=== PATIENT | female | born 1945 | race Hispanic/Latino ===

== ENCOUNTER 2017-02-01 08:10 | Inpatient (IN) | payer MEDICARE ==
[2014-10-06 14:02] VITALS: BMI 31.0
[2017-02-01] MEDS ORDERED: Propofol 10 mg/ml Inj (20 ML) ONE (10:19)
[2017-02-01] MEDS ORDERED: HEPARIN-NS 5,000 UNITS/500 ML 10,000 UNIT/1,000 ML BAG IV ONE (10:28)
[2017-02-01] MEDS ORDERED: ceFAZolin IV 2 gm in Dextrose 1 GM/50 ML BAG IVPB ONE (10:28)
[2017-02-01] MEDS ORDERED: Thrombin Topical 20,000 Intl Units Spray Kit TOP ONE ×2 (10:30→14:02)
[2017-02-01] MEDS ORDERED: Lidocaine 1% Inj (20ml) ONE (10:30)
[2017-02-01] MEDS ORDERED: Lactated Ringer's 1,000 ML IV ONE ×3 (10:45→13:34)
[2017-02-01] MEDS ORDERED: Sodium Chloride 0.9% 1,000 ML IV ONE ×2 (10:45→20:00)
[2017-02-01] MEDS ORDERED: Esmolol 100 mg/10ml Inj IV ONE (11:32)
[2017-02-01] MEDS ORDERED: ePHEDrine 50 mg/ml Inj ONE (11:39)
[2017-02-01] MEDS ORDERED: White Petrolatum/Mineral Oil Ophth Oint(3.5 gm) ONE (11:39)
[2017-02-01] MEDS ORDERED: HYDROmorphone 0.5 mg/0.5 ml ISec IVP PRN (15:02)
[2017-02-01] MEDS ORDERED: Nitroglycerin 2% Ointment Foilpak UD TOP PRN (15:06)
--- NOTE | 2017-02-01 15:14 | PCM.SURG1 ---
Surgeon's Initial Post Op Note - Surgeon's Notes Surgeon: Dr. Herrera Tobacco Warehouse Manager: Dr. Marcus, Dr. Godinez PGY-3, Dr. Bowen PGY-2 Type of Anesthesia: General Endo Pre-Operative Diagnosis: Right carotid stenosis Operative Findings: Right carotid plaque Post-Operative Diagnosis: Right carotid stenosis Operation Performed: Right carotid endarterectomy Specimen/Specimens Removed: right carotid plaque Estimated Blood Loss: EBL {In ML}: 300 Blood Products Given: N/A Drains Used: [place] (red rubber catheter) Post-Op Condition: Fair Date of Surgery/Procedure: 02/01/17 Time of Surgery/Procedure: 11:15
[2017-02-01] MEDS ORDERED: Morphine 4 MG/ML VIAL IVP PRN (16:13)
[2017-02-01] MEDS: Sodium Chloride 0.9% 1,000 ML IV SCH (21:39)
[2017-02-01] MEDS: Rosuvastatin Calcium 2.5 mg Tab PO SCH (22:16)
--- NOTE | 2017-02-01 23:13 | CP.PCM.CON ---
History of Present Illness - History of Present Illness History of Present Illness: 71-year-old female with a history of hypertension, hypercholesterolemia, renal artery stenosis hyperlipidemia peripherovascular disease admitted to the intensive care unit the following the right carotid endarterectomy. Patient had a severe carotid artery stenosis. And associated symptoms. Patient underwent surgical intervention. Patient did extremely well. Currently being monitored in the ICU. Past medical history hypertension and hypercholesteremia renal artery stenosis hyperlipidemia PVD Allergy: No known drug allergy Social history denies any alcohol. Family history noncontributory Review of system: Denies any headache, she is feeling better at this time, no nausea vomiting moving all 4 extremities Vital signs reviewed No neck vein distention noted Chest good air entry bilaterally, no wheezing or rales noted CVS regular heart sound, no murmur noted Abdomen soft, nontender. Extremities no pedal edema UROLOGIST alert awake oriented 3, no functional neurological deficit Labs reviewed Assessment and recommendation: 71-year-old female with history of hypertension diabetes hyperlipidemia underwent a right carotid endarterectomy. Postoperative monitoring. Clinical stable. Past Patient History - Past Medical History & Family History Past Medical History?: Yes - Past Social History Smoking Status: Never Smoked - CARDIAC Hx Cardiac Disorders: Yes Hx Circulatory Problems: Yes Hx Hypercholesterolemia: Yes Hx Hypertension: Yes Hx Peripheral Vascular Disease: Yes Other/Comment: history of stent placement both legs. History of stress test with negative results. - PULMONARY Hx Respiratory Disorders: No - NEUROLOGICAL Hx Neurological Disorder: Yes Other/Comment: Restless leg syndrome. Blind in the left eye. - HEENT Hx HEENT Problems: Yes Hx Blind: Yes (left eye) - RENAL Hx Kidney Stones: Yes Other/Comment: history of left kidney stent. - ENDOCRINE/METABOLIC Hx Endocrine Disorders: No - HEMATOLOGICAL/ONCOLOGICAL Hx Blood Disorders: No - INTEGUMENTARY Hx Dermatological Problems: No - MUSCULOSKELETAL/RHEUMATOLOGICAL Hx Musculoskeletal Disorders: Yes Hx Arthritis: Yes Hx Back Pain: Yes Hx Degenerative Joint Disease: Yes Hx Falls: Yes Hx Fractures: Yes (left leg) Other/Comment: drop foot - GASTROINTESTINAL Hx Gastrointestinal Disorders: Yes Hx Gall Bladder Disease: Yes - GENITOURINARY/GYNECOLOGICAL Hx Genitourinary Disorders: Yes Other/Comment: stress incontinence - PSYCHIATRIC Hx Substance Use: No - SURGICAL HISTORY Hx Surgeries: Yes Hx Cholecystectomy: Yes Hx Coronary Stent: Yes Hx Musculoskeletal Surgery: Yes Hx Orthopedic Surgery: Yes Other/Comment: back surgery - ANESTHESIA Hx Anesthesia: Yes Hx Anesthesia Reactions: No Hx Malignant Hyperthermia: No Has any member of the family had a problem w/ anesthesia?: No Meds Allergies/Adverse Reactions: Allergies Allergy/AdvReac Type Severity Reaction Status Date / Time No Known Allergies Allergy Verified 10/06/14 14:01 - Medications Medications: Current Medications Clopidogrel Bisulfate (Plavix) 75 mg PO DAILY [facility] Hydrochlorothiazide (Hydrodiuril) 25 mg PO DAILY [facility] Sodium Chloride (Sodium Chloride 0.9%) 1,000 mls @ 125 mls/hr IV .Q8H [facility] Last Admin: 02/01/17 21:39 Dose: Not Given Lisinopril (Zestril) 20 mg PO DAILY [facility] Morphine Sulfate (Morphine) 4 mg IVP Q4 PRN PRN Reason: Pain, moderate (4-7) Nitroglycerin (Nitro-Bid 2% Oint) 1 ea TOP PRN PRN PRN Reason: Systolic Blood Pressure Ondansetron HCl (Zofran Inj) 4 mg IVP Q4 PRN PRN Reason: Nausea/Vomiting Last Admin: 02/01/17 19:45 Dose: 4 mg Rosuvastatin Calcium (Crestor) 2.5 mg PO HS [facility] Last Admin: 02/01/17 22:16 Dose: Not Given Results - Vital Signs Recent Vital Signs: Last Vital Signs Temp 97.3 F L 02/01/17 19:00 Pulse 75 02/01/17 21:00 Resp 11 L 02/01/17 21:00 BP 128/62 02/01/17 21:00 Pulse Ox 100 02/01/17 21:00 - Labs Labs: Laboratory Results - last 24 hr 02/01/17 09:00 Blood Type A POSITIVE Antibody Screen Negative
[2017-02-02] MEDS: Sodium Chloride 0.9% 1,000 ML IV SCH (03:05)
[2017-02-02] MEDS ORDERED: Nitroglycerin 2% Ointment Foilpak UD TOP STA (06:08)
[2017-02-02 06:19] LABS: HEMATOCRIT 32.1 % (34.0-47.0); MEAN CELL VOLUME 88.1 fL (81.0-99.0); MEAN CORPUSCULAR HGB CONC 34.1 g/dL (33.0-37.0); MEAN PLATELET VOLUME 9.9 fL (7.2-11.7); RED CELL DISTRIBUTION WIDTH 12.9 % (11.5-14.5); WHITE BLOOD COUNT 6.1 K/uL (4.8-10.8)
[2017-02-02 06:38] LABS: ALB/GLOB RATIO 1.4 (1.0-2.1); ALKALINE PHOSPHATASE 80 U/L (38-126); ALT/SGPT 31 U/L (9-52); AST/SGOT 26 U/L (14-36); BILIRUBIN,TOTAL 0.4 mg/dL (0.2-1.3); BLOOD UREA NITROGEN 23 mg/dL (7-17); CALCIUM 8.6 mg/dl (8.6-10.4); CARBON DIOXIDE 22 mmol/L (22-30); CHLORIDE 104 mmol/L (98-107); GFR AFRICAN-AMERICAN > 60; GLUCOSE,RANDOM 116 mg/dL (65-105); POTASSIUM 3.8 mmol/L (3.6-5.2); SODIUM 138 mmol/L (132-148); TOTAL PROTEIN 6.2 g/dL (6.3-8.3)
[2017-02-02] MEDS ORDERED: Sodium Chloride 0.9% 1,000 ML IV SCH (06:47)
--- NOTE | 2017-02-02 09:47 | OP ---
PROCEDURE DATE: 02/01/2017 PREOPERATIVE DIAGNOSIS: Carotid stenosis, symptomatic. PROCEDURE CARRIED OUT: Right carotid endarterectomy. SURGEON: Dr. Herrera. ELECTRICIAN FRONT: Dr. Godinez, resident, Dr. Bowen, resident. ANESTHESIA ADMINISTERED BY: *------* INDICATIONS: A 71-year-old woman in reasonably good health who presents with visual disturbance in the right eye, subsequently found on evaluation of a high grade over 80% stenosis on the right internal carotid artery. OPERATIVE FINDINGS: This is a plaque that extended far up the internal carotid artery from approximately 2.5 cm. It is very ulcerated. This was not a smooth plaque. A vascu-guard patch was used, a Red Rubber catheter was left as a drain and a Scoma shunt was used during the procedure. PROCEDURE: The patient was given general anesthesia, intravenous antibiotics, Venodyne boots were applied. Exposure was obtained in the neck of the common internal and external carotid artery, hypoglossal nerve was identified. After the vessels were all confirmed, we are above the area of the plaque and then we carried out, we clamped the vessels, gave heparin, carried out an arteriotomy, placed the Scoma shunt, removed the plaque, had very good endpoints. We then removed the shunt from the field after bringing in the vascu-guard patch, which was sutured into position. After this, we then removed the previously placed Scoma shunt, flushed this out extensively, and then closed the wound. After we completed the operation, I spent an hour and half due to the Plavix maintaining close observation on the wound to control any bleeding that was present and there was no significant bleeding, all suture points where we touched up, any bleeding point on the suture line were touched up, but we did loose approximately 350 mL of blood primarily due to those which occurred even after the heparin worn out. There is little bit use of thrombin, etc., in the wound itself, but eventually after an hour and half beyond the end of the operation, we then completely closed the neck wound, left a small drain and terminated the procedure. The patient awoke in a satisfactory condition, moving everything without any deficit. OPERATION CARRIED OUT: Right carotid endarterectomy. This is very ugly ulcerative plaque extending up internal carotid artery. Pasquale Herrera Jr., MD cc: Carlton Mata
[2017-02-02] MEDS ORDERED: Enalaprilat 2.5 MG/2 ML IV ONE (10:45)
--- NOTE | 2017-02-02 16:55 | CP.PCM.PN ---
Subjective - Date & Time of Evaluation Date of Evaluation: 02/02/17 Time of Evaluation: 08:00 - Subjective Subjective: VASCULAR SURGERY PROGRESS NOTE FOR DR. CHO Patient seen and examined at bedside in the ICU. Overnight, her BP was high. She was given the Nitro but it remained high so she was started on a Nitroprusside drip. Her BP returned to normal. Patient reports that she vomited after CLD yesterday evening. She was given Zofran and has not had any more vomiting or nausea today. She is urinating on her own. She was OOB to commode today. She complains of MIN and is requesting Tylenol. Objective - Vital Signs/Intake and Output Vital Signs (last 24 hours): Temp Pulse Resp BP Pulse Ox 97.6 F 74 12 154/70 H 96 02/02/17 16:15 02/02/17 16:10 02/02/17 16:10 02/02/17 16:00 02/02/17 16:10 Intake and Output: 02/02/17 02/02/17 06:59 18:59 Intake Total 1000 3027.9 Output Total 900 1400 Balance 100 1627.9 - Medications Medications: Current Medications Acetaminophen (Tylenol 325mg Tab) 650 mg PO Q6 PRN PRN Reason: Headache Last Admin: 02/02/17 16:15 Dose: 650 mg Clopidogrel Bisulfate (Plavix) 75 mg PO DAILY [facility] Last Admin: 02/02/17 11:03 Dose: 75 mg Hydrochlorothiazide (Hydrodiuril) 25 mg PO DAILY [facility] Last Admin: 02/02/17 11:13 Dose: 25 mg Lisinopril (Zestril) 40 mg PO DAILY [facility] Lisinopril (Zestril) 20 mg PO ONCE ONE Stop: 02/02/17 18:01 Morphine Sulfate (Morphine) 4 mg IVP Q4 PRN PRN Reason: Pain, moderate (4-7) Ondansetron HCl (Zofran Inj) 4 mg IVP Q4 PRN PRN Reason: Nausea/Vomiting Last Admin: 02/02/17 11:03 Dose: 4 mg Rosuvastatin Calcium (Crestor) 2.5 mg PO HS [facility] Last Admin: 02/01/17 22:16 Dose: Not Given - Labs Labs: 02/02/17 06:10 02/02/17 06:10 - Constitutional Appears: Well, Non-toxic, No Acute Distress - Head Exam Head Exam: ATRAUMATIC, NORMAL INSPECTION - Neck Exam Additional comments: Right neck dressing with dried blood - Respiratory Exam Respiratory Exam: NORMAL BREATHING PATTERN. absent: Respiratory Distress - Cardiovascular Exam Cardiovascular Exam: +S1, +S2. absent: Tachycardia - Neurological Exam Neurological Exam: Alert, Awake, CN II-XII Intact, Oriented x3 - Psychiatric Exam Psychiatric exam: Normal Affect, Normal Mood - Skin Skin Exam: Dry, Normal Color, Warm Assessment and Plan - Assessment and Plan (Free Text) Assessment: 71yo F with right carotid stenosis s/p right carotid endarterectomy POD#1 - Hgb 10.9 today - Red rubber catheter drain removed this morning by Dr. Cho - Had Nitro paste and then nitroprusside drip last night for BP control. Now BP controlled on home meds - No focal neurologic deficit, no tongue deviation - Tolerating CLD, will advance diet - Possible DC home tomorrow if BP remains WNL - Discussed plan with Dr. Javier Godinez PGY-3
[2017-02-02] MEDS: Rosuvastatin Calcium 2.5 mg Tab PO SCH (21:03)
[2017-02-03 07:33] LABS: BASO % 0.5 % (0.0-2.0); EOS # 0.1 K/uL (0.0-0.7); EOS % 2.9 % (0.0-4.0); HEMATOCRIT 30.7 % (34.0-47.0); LYMPH # 1.2 K/uL (1.0-4.3); MEAN CELL VOLUME 87.9 fL (81.0-99.0); MEAN CORPUSCULAR HEMOGLOBIN 30.6 pg (27.0-31.0); MEAN CORPUSCULAR HGB CONC 34.8 g/dL (33.0-37.0); MEAN PLATELET VOLUME 9.4 fL (7.2-11.7); MONO # 0.6 K/uL (0.0-0.8); RED CELL DISTRIBUTION WIDTH 12.8 % (11.5-14.5); WHITE BLOOD COUNT 5.2 K/uL (4.8-10.8)
[2017-02-03 08:26] VITALS: BP 143/73; PULSE 66; RESP 20; TEMP 97.9; O2SAT 97
--- NOTE | 2017-02-03 09:59 | CP.PCM.DIS ---
Provider - Provider Date of Admission: 02/01/17 08:10 Attending physician: Pasquale Herrera Jr, MD Consults: none Time Spent in preparation of Discharge (in minutes): 30 Diagnosis - Discharge Diagnosis (1) Carotid artery stenosis Status: Acute Hospital Course - Lab Results Lab Results: Micro Results 02/01/17 Unknown Nose MRSA Culture (Admit) - Final MRSA NOT DETECTED Most Recent Lab Values WBC 5.2 K/uL (4.8-10.8) 02/03/17 07:09 RBC 3.49 Mil/uL (3.80-5.20) L 02/03/17 07:09 Hgb 10.7 g/dL (11.0-16.0) L 02/03/17 07:09 Hct 30.7 % (34.0-47.0) L 02/03/17 07:09 MCV 87.9 fL (81.0-99.0) 02/03/17 07:09 MCH 30.6 pg (27.0-31.0) 02/03/17 07:09 MCHC 34.8 g/dL (33.0-37.0) 02/03/17 07:09 RDW 12.8 % (11.5-14.5) 02/03/17 07:09 Plt Count 143 K/uL (130-400) 02/03/17 07:09 MPV 9.4 fL (7.2-11.7) 02/03/17 07:09 Neut % (Auto) 62.6 % (50.0-75.0) 02/03/17 07:09 Lymph % (Auto) 23.0 % (20.0-40.0) 02/03/17 07:09 Travis % (Auto) 11.0 % (0.0-10.0) H 02/03/17 07:09 Eos % (Auto) 2.9 % (0.0-4.0) 02/03/17 07:09 Baso % (Auto) 0.5 % (0.0-2.0) 02/03/17 07:09 Neut # 3.3 K/uL (1.8-7.0) 02/03/17 07:09 Lymph # 1.2 K/uL (1.0-4.3) 02/03/17 07:09 Travis # 0.6 K/uL (0.0-0.8) 02/03/17 07:09 Eos # 0.1 K/uL (0.0-0.7) 02/03/17 07:09 Baso # 0.0 K/uL (0.0-0.2) 02/03/17 07:09 Sodium 138 mmol/L (132-148) 02/02/17 06:10 Potassium 3.8 mmol/L (3.6-5.2) 02/02/17 06:10 Chloride 104 mmol/L (98-107) 02/02/17 06:10 Carbon Dioxide 22 mmol/L (22-30) 02/02/17 06:10 Anion Gap 15 (10-20) 02/02/17 06:10 BUN 23 mg/dL (7-17) H 02/02/17 06:10 Creatinine 0.9 MG/DL (0.7-1.2) 02/02/17 06:10 Est GFR ( Amer) > 60 02/02/17 06:10 Est GFR (Non-Af Amer) > 60 02/02/17 06:10 Random Glucose 116 mg/dL (65-105) H 02/02/17 06:10 Calcium 8.6 mg/dl (8.6-10.4) 02/02/17 06:10 Total Bilirubin 0.4 mg/dL (0.2-1.3) 02/02/17 06:10 AST 26 U/L (14-36) 02/02/17 06:10 ALT 31 U/L (9-52) 02/02/17 06:10 Alkaline Phosphatase 80 U/L (38-126) 02/02/17 06:10 Total Protein 6.2 g/dL (6.3-8.3) L 02/02/17 06:10 Albumin 3.6 g/dL (3.5-5.0) 02/02/17 06:10 Globulin 2.6 gm/dL (2.2-3.9) 02/02/17 06:10 Albumin/Globulin Ratio 1.4 (1.0-2.1) 02/02/17 06:10 Blood Type A POSITIVE 02/01/17 09:00 Antibody Screen Negative 02/01/17 09:00 - Hospital Course Hospital Course: 71yo F with PMHx of HTN, hyperlipidemia and carotid artery stenosis was admitted from same day surgery. On 02/01/17, she had a right carotid endarterectomy. A red rubber catheter was left as a drain. Pathology showed atherocalcific plaque. Post op, she was monitored in the ICU overnight. She didn 't have any tongue deviation or neurological deficits. Her BP was high the first night so she was given Nitro paste and then started on a nitroprusside drip which was discontinued a few hours later. On POD#2, her BP was well controlled with PO meds, she was tolerating regular diet, and discharged home to follow up with Dr. Herrera in his office. Discharge Exam - Head Exam Head Exam: ATRAUMATIC, NORMAL INSPECTION - Eye Exam Eye Exam: EOMI, Normal appearance - Neck Exam Additional comments: Dried blood from previous drain on dressing No hematoma/edema - Respiratory Exam Respiratory Exam: NORMAL BREATHING PATTERN. absent: Respiratory Distress - Cardiovascular Exam Cardiovascular Exam: +S1, +S2 - Neurological Exam Neurological exam: Alert, CN II-XII Intact, Oriented x3 - Psychiatric Exam Psychiatric exam: Normal Affect, Normal Mood - Skin Skin Exam: Dry, Normal Color, Warm Discharge Plan - Follow Up Plan Condition: GOOD Disposition: HOME/ ROUTINE Instructions: Carotid Endarterectomy (DC) Additional Instructions: Follow up with Dr. Herrera in his office in 1-2 weeks If your headache continues or gets worse, call Dr. Herrera's office You may remove dressings tomorrow. After you remove the dressing, you may shower but do not take a bath or swim for 2 weeks You may take Tylenol as needed for pain or headache Resume home blood pressure medications Follow up with primary care doctor in 1-2 days Referrals: Pasquale Herrera Jr., MD [Staff Provider] -
== END 2017-02-03 12:39 | disposition home or self-care (01) | DRG 39 ==
LOC: C.9S 08:10 → C.9I 21:12 → C.3T 02-02 21:19
PROVIDERS: ADMIT Surgery Vascular Surgery; ATTEND Surgery Vascular Surgery
PROC: 03CK0ZZ Extirpation of Matter from Right Internal Carotid Artery, Open Approach (ICD-10-PCS; principal; 2017-02-01 10:00)
DX: I65.21 Occlusion and stenosis of right carotid artery (principal); I10 Essential (primary) hypertension; E78.5 Hyperlipidemia, unspecified; I73.9 Peripheral vascular disease, unspecified; E78.00 Pure hypercholesterolemia, unspecified